=== PATIENT | female | born 1945 | race Two or more races ===

== ENCOUNTER 2018-10-15 05:41 | Day surgery (SDC) | payer OTHER ==
[~2018-10-15 05:41] MED LIST: ATACAND HCT 31 UDTA1; CADUET 10 MG/101 TAB; CLONAZEPAM2 MG PO; CYMBALTA20 MG; FOLIC ACID0.4 MG PO; KETO10TA2 PO; MELATONIN10 MG PO; NAMENDA10 MG; NEMANTINE PO; NORFLEX100MG PO; NORFLEX30 MG/ML; SINGULAIR10 MG; SYNTHROID150 MCG; XARELTO10 MG
[2018-10-15] MEDS ORDERED: TORADOL60 MG IM (10:46)
[2018-10-15] MEDS ORDERED: ORPHENADRI30 MG/1 ML IJ (10:46)
== END 2018-10-15 13:50 | disposition home or self-care (01) ==
LOC: CIR.AMB 05:41
DX: M23.321 Other meniscus derangements, posterior horn of medial meniscus, right knee (principal); M23.351 Other meniscus derangements, posterior horn of lateral meniscus, right knee; M13.811 Other specified arthritis, right shoulder; M22.41 Chondromalacia patellae, right knee